=== PATIENT | male | born 1970 | race Hispanic/Latino ===

== ENCOUNTER 2020-03-30 15:04 | Inpatient (IN) | payer SELFPAY ==
[~2020-03-30] VITALS: Ht 167.6 cm; Wt 75.7 kg
[2020-03-30] MEDS ORDERED: SODIUM CHLORIDE 0.9% 1000ML 1,000 ML IV SCH ×2 (15:15→16:00)
[2020-03-30] MEDS ORDERED: PIPER-TAZ 3.375 GM 50 ML IV ONE (15:30)
[2020-03-30] MEDS ORDERED: VANCOMYCIN 1GM/NS 250 ML 250 ML IV ONE (15:30)
--- NOTE | 2020-03-30 15:33 | Emergency Department Note ---
History of Present Illnes History of Present Illness Chief Complaint: Extremity Trauma/Pain History of Present Illness This is a 49 year old male . Arrival Mode: Car Relocation Director Required: No Onset (how long ago): day(s) (6 days patient stepped on wood splinter 2 weeks ago which perforated his rubber shoe sole he was fine then Wednesday they noticed he had redness, no pain no fever) Radiation: Reports non-radiation Severity: mild (MILD PAIN), moderate Onset quality: gradual Duration (how long): day(s) (6 DAYS AGO IS STARTED GETTING RED, SWELLING NO DRAINAGE BUT CHANGED IN COLOR) Timing of current episode: constant Progression: worsening Context: Denies recent illness, Denies recent surgery, Denies recent immobilization, Denies recent travel, Denies trauma/injury, Denies new medications, Denies hx of DVT/PE, Denies non-compliance w/ medications, Denies other Relieving factors: immobilization Exacerbating factors: movement Associated symptoms: Reports other (no pain) Treatments prior to arrival: none Risk factors: DIABETIC POORLY CONTROLLED, NO FEVER Past Medical/Family History Physician Review I have reviewed the patient's past medical and family history. Any updates have been documented here. Past Medical History Recent Fever: No Clinical Suspicion of Infectio: Yes New/Unexplained Change in Ment: No Past Medical History: Diabetes, Hyperlipedemia Past Surgical History: None Social History Smoking Cessation: Smoker current status unk Alcohol Use: Occasional Any Illegal Drug Use: No Other Any Pre-Existing Lines (PICC,: No Is patient up to date on immun: No Review of Systems Review of Systems Constitutional: Denies no symptoms, Denies as per HPI, Denies chills, Denies diaphoresis, Denies fever, Denies malaise, Denies weakness, Denies other EENTM: Denies no symptoms, Denies as per HPI, Denies eye pain, Denies blurred vision, Denies tearing, Denies double vision, Denies ear pain, Denies ear disch arge, Denies nose pain, Denies nose congestion, Denies throat pain, Denies throat swelling, Denies mouth pain, Denies mouth swelling, Denies other Cardiovascular: Denies no symptoms, Denies as per HPI, Denies chest pain, Denies edema, Denies palpitations, Denies syncope, Denies other Respiratory: Denies no symptoms, Denies as per HPI, Denies change in phlegm color, Denies chest congestion, Denies cough, Denies hemoptysis, Denies excessive phlegm production, Denies pain on inspiration, Denies pain with cough, Denies dyspnea, Denies dyspnea on exertion, Denies snoring, Denies stridor, Denies wheezing, Denies other Integumentary: Reports lesions Neurological: Reports no symptoms Hematological/Lymphatic: Reports no symptoms Review of other systems: All other systems negative Physical Exam Related Data Allergies: Coded Allergies: No Known Allergies (Unverified , 03/30/20) Vital signs reviewed: Yes Physical Exam CONSTITUTIONAL Constitutional: Present well-developed, Present well-nourished; Absent distressed, Absent ill appearing HENT HENT: Present normocephalic EYES Eyes: Reports conjunctivae normal NECK Neck: Present supple PULMONARY Pulmonary: Present effort normal, Present breath sounds normal CARDIOVASCULAR Cardiovascular: Present regular rhythm, Present other (pt has palpable/dopplerable pulses) GASTROINTESTINAL Abdominal: Present soft GENITOURINARY Genitourinary: Present exam deferred SKIN Skin: Present other (left foot with skin breakdown in the plantar aspect erythema and desquamation between 3rd and 4th toes) MUSCULOSKELETAL NEUROLOGICAL Neurological: Present alert, Present oriented x 3 PSYCHOLOGICAL Psychological: Present mood/affect normal Results Laboratory Laboratory CMP Gluc 457 Cl 90 Alb 2.9 CBC 14.3 UA trace ket Gluc 500 Lab results reviewed: Yes Imaging Imaging results reviewed: Yes Assessment & Plan Medical Decision Making MDM osteo, gas gangrene, deep space infection, sepsis, dka, retained fb Reassessment Reassessment PT HAS GLUCOSE OF 470 PLUS NORMAL CO2 TRACE KETONES THIS COULD BE EARLY DKA HIS CL WAS [address] DURHAM AND SPOKE WITH HIM AGREES WITH ADMISSION WILL WRITE SOME BRIEF HOLDING ORDERS WILL PLACE PATIENT ON ANTI PSEUDOMONAL PCN AND VANC TO COVER ORGANISMS 'WILL NOT TREAT BP THIS IS CHRONIC AND HE IS ASYMPTOMATIC HE CAN BE STARTED ON A BP REGIMEN WHEN ADMITTED FOR BETTER CONTROL Assessment & Plan Final Impression: (1) Cellulitis of left foot (2) Abscess (3) Hypertension (4) Hyperglycemia Depart Disposition: ADMITTED Medications in the ED Sodium Chloride 1,000 ml @ 0 mls/hr Q0M IV ; Start 03/30/20 at 15:15; Stop 04/29/20 at 15:14 Vancomycin HCl 250 ml @ 167 mls/hr ONCE ONCE IV ; Start 03/30/20 at 15:30; Stop 03/30/20 at 16:59; Status UNV Piperacillin Sod/ Tazobactam Sod 50 ml @ 100 mls/hr ONCE ONCE IV ; Start 03/30/20 at 15:30; Stop 03/30/20 at 15:59 CARLOS REYES MD Mar 30, 2020 15:33
--- NOTE | 2020-03-30 15:50 | Diagnostic Imaging Report ---
EXAM: Abdomen Radiograph 1 View(s) INDICATION: ^infection ^[id number] ^[id number] COMPARISON: None FINDINGS: No acute fracture or dislocation. No osseous erosion. The joint spaces are preserved. No intracalcaneal spur. Advanced arterial calcifications. IMPRESSION: No acute osseous abnormality. Signed by: Cooper Meyer MD on 03/30/2020 3:47 PM
[2020-03-30] MEDS ORDERED: SODIUM CHLORIDE 0.9% 1000ML 1,000 ML ONE ×2 (15:52→16:01)
[2020-03-30] MEDS ORDERED: VANCOMYCIN 1GM/NS 250 ML 250 ML ONE (15:52)
[2020-03-30] MEDS ORDERED: PIPER-TAZ 3.375 GM 50 ML ONE (15:53)
[2020-03-30] MEDS ORDERED: TETANUS/DIPHTHERIA TOX ADULT 0.5 ML SYR IM ONE (16:00)
[2020-03-30] MEDS ORDERED: INSULIN REGULAR, HUMAN 100 UNIT/1 ML 3ML VIAL IV ONE (16:00)
[2020-03-30] MEDS ORDERED: INSULIN REGULAR, HUMAN 100 UNIT/1 ML 3ML VIAL ONE (16:01)
[2020-03-30] MEDS ORDERED: TETANUS/DIPHTHERIA TOX ADULT 0.5 ML SYR ONE (16:01)
[2020-03-30] MEDS ORDERED: DEXTROSE 50% SYRINGE 50 ML IV PRN (16:15)
[2020-03-30] MEDS ORDERED: ONDANSETRON HCL INJ 2MG/ML 2ML 2 MG/ML VIAL IV PRN (16:15)
--- NOTE | 2020-03-30 16:15 | NUR ---
[facility] NOTIFIED OF TRANSFER, 45 MINUTE ETA
[2020-03-30] MEDS ORDERED: MORPHINE SULFATE INJ 4 MG/ML INJ 1ML IV PRN ×2 (16:30→22:15)
[2020-03-30] MEDS: INSULIN REGULAR, HUMAN 100 UNIT/1 ML 3ML VIAL SQ SCH ×2 (16:30→21:40)
[2020-03-30 17:54] VITALS: BP 188/104
[2020-03-30] MEDS: SODIUM CHLORIDE 0.9% 1000ML 1,000 ML IV SCH (18:31)
--- NOTE | 2020-03-30 19:00 | NUR ---
Received the patient in report.lyeing in the bed.iv fluid running.stable condition.
[2020-03-30 19:51] VITALS: BP 170/94
[2020-03-30 20:00] VITALS: BP 146/92
[2020-03-30] MEDS ORDERED: METFORMIN HCL500 MG PO (20:25)
--- NOTE | 2020-03-30 20:25 | NUR ---
Admission assessment done.aaox3.ambulates.no resp.distress noted.open wound noted on left foot.swollen and redness noted elevated left foot.oriented to the unit.bed locked and in lowest position.phone and call light within reach.instructed to call for assistance as needed.
[2020-03-30 21:00] VITALS: BP 146/92
[2020-03-30] MEDS ORDERED: NIFEDIPINE CR 30 MG TAB PO SCH (21:30)
[2020-03-30] MEDS ORDERED: HYDRALAZINE HCL 20 MG/ML VIAL IV PRN (21:30)
[2020-03-30] MEDS ORDERED: DOCUSATE SODIUM 100 MG CAP PO PRN (21:30)
[2020-03-30] MEDS ORDERED: AMLODIPINE BESYLATE 10 MG TAB PO SCH (22:00)
[2020-03-30] MEDS ORDERED: HYDROCODONE/APAP 5MG-325MG TAB PO PRN (22:15)
--- NOTE | 2020-03-30 22:30 | NUR ---
HAS SEEN THE PATIENT.RECEIVED NEW ORDERS.
[2020-03-30] MEDS: CEFEPIME 1GM/NS 0.9% 50 ML 50 ML IV SCH (22:38)
[2020-03-30] MEDS: ACETAMINOPHEN 325 MG TAB PO PRN (22:45)
[2020-03-30] MEDS: LISINOPRIL 20 MG TAB PO SCH (22:47)
[2020-03-30] MEDS: INSULIN GLARGINE 100 UNITS/ML VIAL SQ SCH (22:48)
[2020-03-30] MEDS: ENOXAPARIN SOD INJ 40 MG/0.4 ML SYR SC SCH (22:50)
--- NOTE | 2020-03-30 23:05 | History and Physical ---
CHIEF COMPLAINT: Left foot swelling cellulitis. HISTORY OF PRESENT ILLNESS: A 49-year-old male, history of peripheral neuropathy type 2 diabetes, uncontrolled, hypertension uncontrolled, noncompliant with his medications. He was working out in the field about 2 weeks ago, walked on a thorn. He reports that the foot progressively got worse over the last several days. Reports having subjective fevers. Reports that his left foot had some discoloration that began Wednesday of this last week. He was able to ambulate on it as well, but progressively got worse and came into the [facility] for further evaluation and management. He denies any discharge to the left foot. Reports some mild pain. There is evidence of some cellulitis and swelling in that left foot. The patient is seen and evaluated at bedside on the medical floor. He is currently doing well. He is stable. He was alert, awake, and oriented and I discussed plan of care with nursing staff. REVIEW OF SYSTEMS: Pertinent positive left foot swelling, cellulitis, erythematic. The rest of 14-point review of systems are reviewed with the patient and are negative. ALLERGIES: NO KNOWN DRUG ALLERGIES. HOME MEDICATIONS: Metformin. PAST MEDICAL HISTORY: Type 2 diabetes, hypertension, type 2 diabetes, uncontrolled peripheral neuropathy. PAST SURGICAL HISTORY: Reports none. FAMILY HISTORY: Hypertension and diabetes. SOCIAL HISTORY: No drugs. No alcohol. Does not smoke. He works in construction. PHYSICAL EXAMINATION: VITAL SIGNS: Temperature is 100.2, pulse 107, respiratory rate is 18, blood pressure was 146/92, pulse ox is 98% on room air. GENERAL: No acute distress. Alert and oriented x3. Cooperative on examination. HEENT: Head is normocephalic and atraumatic. Eyes; pupils are reactive to light bilaterally. Extraocular movements intact bilaterally. Throat; no evidence of erythema or exudates in the posterior pharynx. Has poor dentition. NECK: Supple. Good range of motion throughout. PULMONARY: Clear to auscultation bilaterally. No wheezing, rales, or rhonchi. No crackles appreciated. CARDIOVASCULAR: Positive S1, S2. No murmurs, rubs, or gallops. ABDOMEN: Soft, nondistended, nontender to palpation. Bowel sounds present. MUSCULOSKELETAL: Strength is 5/5 throughout. No evidence of any muscle deficits on examination. No weakness appreciated. NEUROLOGIC: Cranial nerves II through XII grossly intact. No evidence of any neurological deficits on exam. SKIN: Intact. Warm to touch. Good cap refill. PSYCHIATRIC: Normal affect and mood. EXTREMITIES: Left foot is very swollen, erythematic, mild tender to palpation. He does have a little puncture wound in the plantar aspect of the left foot. Also has the 4th digit of his toe kind of necrotic in nature, bluish in discoloration with some swelling and skin peeling and very erythematic. LABORATORY DATA: Labs show white count was 14, hemoglobin 13, hematocrit is 41, platelets of 449. UA showed pH was 6, protein was greater than 300, nitrite and leukocyte esterase were negative. Chemistry; sodium 134, potassium 3.9, chloride 90, bicarbonate 26, glucose is 457, BUN 18, creatinine is 0.9. Liver panel, albumin 2.9, ALT 67, amylase 42, AST 32, total bilirubin was 0.6, GGT is 309, total protein 8.2, albumin 2.9. MICROBIOLOGY: Blood cultures are pending. Wound cultures are pending. IMAGING STUDIES: Left foot x-ray shows no evidence of any gas. No abscess appreciated. No osteomyelitis appreciated. No acute osseous abnormalities. IMPRESSION: 1. Left foot cellulitis concerning for underlying abscess. 2. Type 2 diabetes, uncontrolled. 3. Hypertension, uncontrolled. 4. Peripheral neuropathy. 5. Medical noncompliance. PLAN: At this time, I will go ahead and get an MRI of the left foot to evaluate for any abscess, osteomyelitis, or any other source of other findings. Foot x-ray was negative. Put on IV cefepime and IV vancomycin. Podiatry and ID have been consulted. As far his diabetes, I will put him on insulin sliding scale for now. I would like to see what his A1c is before I initiate a long-acting insulin. Get a hemoglobin A1c, lipid panel and a TSH level. As far his blood pressure, I did add lisinopril. His creatinine is stable. Electrolytes are stable. I added lisinopril 40 mg daily as well as Norvasc 10 mg daily first dose is now as his blood pressure is elevated. He will be on Lovenox for DVT prophylaxis. I will have him on some pain control and he will be on a diabetic diet. Otherwise, we will continue with same plan of care and monitor very closely. MD JOSE Carrillo/ROGER /[id number]
[2020-03-31] VITALS (8 sets, daily range): BP systolic 94–185; BP diastolic 61–98
[2020-03-31] MEDS: SODIUM CHLORIDE 0.9% 1000ML 1,000 ML IV SCH ×2 (05:41→20:37)
[2020-03-31] MEDS: CEFEPIME 1GM/NS 0.9% 50 ML 50 ML IV SCH ×3 (05:41→22:04)
[2020-03-31 06:08] LABS: BASOPHILS # (AUTO) 0.1 (0.0-0.1); BASOPHILS % 0.4 % (0.0-1.0); EOSINOPHILS # (AUTO) 0.1 (0.0-0.4); EOSINOPHILS % 0.8 % (0.0-6.0); HEMATOCRIT 37.9 % (38.2-49.6); HEMOGLOBIN 12.1 g/dL (14.0-18.0); LYMPHOCYTES # (AUTO) 2.5 (1.0-3.2); LYMPHOCYTES % 17.5 % (18.0-39.1); MEAN CORPUSCULAR HEMOGLOBIN 26.7 pg (28-32); MEAN CORPUSCULAR HGB CONC 31.9 g/dL (31-35); MEAN CORPUSCULAR VOLUME 83.7 fL (81-99); MONOCYTES # (AUTO) 1.5 (0.2-0.8); MONOCYTES % 10.1 % (4.4-11.3); NEUTROPHILS # (AUTO) 10.1 (2.1-6.9); NEUTROPHILS % 70.4 % (38.7-80.0); PLATELET COUNT 495 x10e3/uL (140-360); RED BLOOD COUNT 4.53 x10e6/uL (4.3-5.7); RED CELL DISTRIBUTION WIDTH 12.5 % (11.7-14.4)
--- NOTE | 2020-03-31 06:24 | NUR ---
Spoke to Calvin regarding consults with and spoke to Deniz regarding consults with .
[2020-03-31 06:32] LABS: ANION GAP 12.6 mmol/L (8-16); BLOOD UREA NITROGEN 20 mg/dL (7-26); BUN/CREATININE RATIO 16 (6-25); CARBON DIOXIDE 26 mmol/L (22-29); CHLORIDE 101 mmol/L (98-107); CREATININE, SERUM 1.24 mg/dL (0.72-1.25); EST GLOMERULAR FILTRATION RATE > 60 ML/MIN (60-); GLUCOSE 205 mg/dL (74-118); POTASSIUM 3.6 mmol/L (3.5-5.1); SODIUM 136 mmol/L (136-145)
--- NOTE | 2020-03-31 06:55 | NUR ---
Bed side shift report given to oncoming Rn.stable condition.
[2020-03-31] MEDS: INSULIN REGULAR, HUMAN 100 UNIT/1 ML 3ML VIAL SQ SCH ×4 (07:46→20:40)
[2020-03-31] MEDS: LISINOPRIL 20 MG TAB PO SCH (08:29)
[2020-03-31] MEDS: VANCOMYCIN 1GM/NS 250 ML 250 ML IV SCH ×2 (08:29→20:37)
[2020-03-31] MEDS ORDERED: IOPAMIDOL 370 MG/ML 200 ML INFUS..BTL INJ ONE (15:21)
[2020-03-31] MEDS ORDERED: SODIUM CHLORIDE 0.9% 50ML 50 ML ONE (15:21)
--- NOTE | 2020-03-31 15:31 | Diagnostic Imaging Report ---
EXAMINATION: CHEST 2 VIEWS INDICATION: ^PRIOR TO SURGERY ^[id number] ^[id number] COMPARISON: None FINDINGS: PA and lateral views TUBES and LINES: None. LUNGS: Lungs are well inflated. There is no evidence of pneumonia or pulmonary edema. PLEURA: No pleural effusion or pneumothorax. HEART AND MEDIASTINUM: The cardiomediastinal silhouette is unremarkable. BONES AND SOFT TISSUES: No focal osseous lesions. Soft tissues are unremarkable. UPPER ABDOMEN: Unremarkable. IMPRESSION: No acute thoracic abnormality. Signed by: Dr. Hamilton Brumfield MD on 03/31/2020 3:28 PM
--- NOTE | 2020-03-31 16:01 | Diagnostic Imaging Report ---
CT Lower extremity left with contrast, with reconstructions. CPT code: 91381, 85567 Indications: Foot infection. Technique: Contiguous 2.5 mm thickness axial images were obtained through the distal left lower extremity and foot. Rationale for reconstructions: Coronal and sagittal reconstructions were generated to better facilitate assessment of alignment and extent of fracture lines. Dose reduction techniques used: Automated exposure control, adjustment of the mAs and/or kVp according to patient size, standardized low-dose protocol, and/or iterative reconstruction technique. RADIATION DOSE: Total DLP: 134.24 mGy*cm Estimated effective dose: (DLP x 0.015 x size factor) mSv CTDIvol has been reviewed. It is below the limits set by the Radiation Protocol Committee (RPC). Comparison: Foot x-rays 03/30/2020. Findings: Soft tissues: Air in the soft tissues surrounding the fourth toe, proximal aspect. No radiopaque foreign bodies. Mild diffuse subcutaneous edema. No loculated fluid collections. Diffuse vascular calcifications are present. Bones: There may be a non-displaced fracture of the head of the proximal phalanx of the fourth digit, but this is visualized only on the sagittal series. No fracture was visualized on the x-rays. Small plantar calcaneal spurs. No periosteal new bone formation or sclerosis. Joints: Mild narrowing of the tibiotalar joint with small osteophytes. IMPRESSION: Subcutaneous emphysema surrounding the fourth digit, particularly at the head of the proximal phalanx. There is no CT evidence of osteomyelitis. However, MRI and bone scan are more sensitive modalities to identify osteomyelitis. MRI is also a more sensitive modality to identify any underlying fracture, if present. Thank you for this referral. Signed by: Dr. Hamilton Brumfield MD on 03/31/2020 3:57 PM
--- NOTE | 2020-03-31 16:33 | Consultation ---
DATE OF CONSULTATION: 03/31/2020 REASON FOR CONSULTATION: Gangrenous changes to the left foot with the patient being a [id number]-[id number] diabetic. HISTORY OF PRESENT ILLNESS: This is a pleasant 49-year-old male, who was seen at bedside, currently denying history of fever, chills, nausea, vomiting. He relates he stepped on a thorn two weeks ago. His foot started turning somewhat black and discolored since last Wednesday, presented to the emergency room yesterday. He is feeling better since he has been getting IV antibiotics. PAST MEDICAL HISTORY: Remarkable for [id number] diabetes, uncontrolled and noncompliant with hypertension and hypercholesterolemia. PAST SURGICAL HISTORY: The patient denies. ALLERGIES: THE PATIENT DENIES. SOCIAL HISTORY: Smokes a pack every month for 20+ years. Denies any recreational drug use. Socially, he drinks. Lives with his , has three kids. FAMILY HISTORY: Remarkable for diabetes. CURRENT MEDICATIONS: Note listed in chart including IV vancomycin and cefepime. REVIEW OF SYSTEMS: CARDIAC: He is denying any palpitations or arrhythmias. RESPIRATORY: Denies any shortness of breath or productive cough. GASTROINTESTINAL: Denies any diarrhea or constipation. GENITOURINARY: Denies any hematuria or problems voiding. LABORATORY DATA: Labs show white blood cell count of 14.4, hemoglobin 12.1 with a platelet count of 495. Blood glucose dropping from 325 to 199. PHYSICAL EXAMINATION: VITAL SIGNS: Afebrile, pulse rate 95, respiration 19, blood pressure 152/91, O2 saturation 97%. Podiatric physical examination reveals the following: VASCULATURE: Pedal pulses of both the DP and PT are diminished to both lower extremities. NEUROLOGICAL: Reveals loss of protective sensation when utilizing Maple-Antonio 5.07 monofilament wire. MUSCULOSKELETAL: Muscle mass to be asymmetrical, some swelling tenderness noted to the left lower extremity when compared to the right. Muscle strength to be 4 to 5/5 to all muscle groups. DERMATOLOGICAL: Shows gangrenous changes to the 4th toe, left foot. Foul smell present with cellulitis up to the mid foot area. X-rays were negative for any gas in the tissue. Does have calcification of vessels. ASSESSMENT: Diabetic neuropathy and gangrene with cellulitis. PLAN: The patient will be kept n.p.o. after midnight tonight for an amputation of 4th toe. I and D of left foot with possible transmetatarsal amputation. The patient understands no warrantees or guarantees can be given. We will continue IV antibiotics. We will start diluted wet-to-dry Betadine daily to the foot. We will repeat CBC with diff tomorrow after the surgery. Chest x-ray and EKG will be ordered. KELLEY Joyce/ROGER /[id number]
[2020-03-31] MEDS: ENOXAPARIN SOD INJ 40 MG/0.4 ML SYR SC SCH (16:45)
--- NOTE | 2020-03-31 17:18 | Progress Note ---
DATE: 03/31/2020 Medicine Progress Note SUBJECTIVE: The patient's left foot seems to be much better compared to last night when I evaluated it, but still very erythematic. He is scheduled for surgery tomorrow, needing some debridement and likely amputation of the toes. Still pending imaging. PHYSICAL EXAMINATION: VITAL SIGNS: Temperature is 97.6, pulse 75, respiratory rate is 19, blood pressure 152/91, and pulse ox 97% on room air. GENERAL: Not in acute distress. Alert and oriented x3. Cooperative on examination. HEENT: Head; normocephalic, atraumatic. Eyes; pupils are equal, round, and reactive to light bilaterally. Extraocular movements intact bilaterally. Throat; no evidence of erythema or exudates in the posterior pharynx. Has poor dentition. NECK: Supple. Good range of motion. PULMONARY: Clear to auscultation bilaterally. No wheezing, no rales, no rhonchi, no crackles appreciated. CARDIOVASCULAR: Positive S1 and S2. No murmurs, rubs, or gallops appreciated. ABDOMEN: Soft, nondistended, and nontender to palpation. Bowel sounds present. MUSCULOSKELETAL: Strength is 5/5 throughout. No evidence of any muscle deficits on examination. No weakness appreciated. NEUROLOGIC: Cranial nerves 2 through 12 grossly intact. No evidence of any neurological deficits on exam. SKIN: Intact. Warm to touch. Good cap refill. PSYCHIATRIC: Normal affect and mood. EXTREMITIES: No edema. His left foot erythematic with a necrotic 4th toe swelling. Tender to palpation on examination. LABORATORY DATA: Show white count 14, hemoglobin 12, hematocrit is 37.9, and platelets of 495. Chemistry; sodium 136, potassium 3.6, chloride 101, bicarb 26, anion gap of 12, BUN is 20, and creatinine is 1.24. Hemoglobin A1c 12.4. Calcium is 9. Triglycerides 189. LDL is pending. HDL is pending. Serology; coronavirus PCR pending. MICROBIOLOGY: Wound cultures so far showed no growth to date. Blood cultures are pending. IMAGING STUDIES: CT of the left foot with IV contrast pending. IMPRESSION: 1. Left foot cellulitis, concerning for underlying abscess. 2. Type 2 diabetes, uncontrolled. 3. Hypertension, uncontrolled. 4. Peripheral neuropathy. 5. Medical noncompliance. PLAN: At this time, MRI cannot occur today due to the weekend. We will go ahead and get a CT of the left foot with IV contrast. Continue with IV antibiotics being managed by ID. Podiatry came and evaluated the patient. The patient will likely need an amputation of the 4th toe and will likely needs some debridement. Await for the imaging studies. Continue with Lovenox for DVT prophylaxis. Get morning labs. MD JOSE Carrillo/ROGER /[id number]
--- NOTE | 2020-03-31 19:00 | NUR ---
Received the patient in report.lyeing in the bed.stable condition.no pain voiced.
[2020-03-31] MEDS: ACETAMINOPHEN 325 MG TAB PO PRN (20:35)
[2020-03-31] MEDS: INSULIN GLARGINE 100 UNITS/ML VIAL SQ SCH (20:40)
--- NOTE | 2020-03-31 21:43 | Consultation ---
DATE OF CONSULTATION: REASON FOR CONSULTATION: Infection of the foot. HISTORY OF PRESENT ILLNESS: This patient is a very pleasant [place] gentleman, comes in with infection of the foot, gangrenous 3rd toe. He does have diabetes mellitus. He has been having problem with his foot for the last couple of weeks. Now, the toe is gangrenous. PAST MEDICAL HISTORY: Diabetes mellitus. PAST SURGICAL HISTORY: Denies. ALLERGIES: NKA. SOCIAL HISTORY: There is no smoking, drug abuse, or alcohol abuse. FAMILY HISTORY: Unremarkable. LABORATORY DATA: Reviewed. Chart reviewed. PHYSICAL EXAMINATION: GENERAL: He is currently alert, oriented, does not seem in acute distress. On the foot, there is redness, erythema. There is gangrenous change of the foot. IMPRESSION: Osteomyelitis, foot gangrenous changes, concerned about peripheral vascular disease. Agree with supportive care. Agree with IV antibiotics. amputation of the toe as ordered. We will follow. MD ARIEL Moise/MODAntonio /[id number]
[2020-04-01] VITALS (8 sets, daily range): BP systolic 127–179; BP diastolic 68–109
--- NOTE | 2020-04-01 01:37 | NUR ---
Maintaining npo for procedure.iv fluid running.no pain voiced.phone and call light within reach.instructed to call for assistance as needed.
[2020-04-01] MEDS: SODIUM CHLORIDE 0.9% 1000ML 1,000 ML IV SCH ×2 (04:47→16:13)
[2020-04-01] MEDS: CEFEPIME 1GM/NS 0.9% 50 ML 50 ML IV SCH ×3 (05:24→21:30)
[2020-04-01 05:57] LABS: BASOPHILS # (AUTO) 0.1 (0.0-0.1); BASOPHILS % 0.4 % (0.0-1.0); EOSINOPHILS # (AUTO) 0.2 (0.0-0.4); EOSINOPHILS % 1.4 % (0.0-6.0); HEMATOCRIT 36.7 % (38.2-49.6); HEMOGLOBIN 11.9 g/dL (14.0-18.0); LYMPHOCYTES # (AUTO) 2.3 (1.0-3.2); LYMPHOCYTES % 16.6 % (18.0-39.1); MEAN CORPUSCULAR HEMOGLOBIN 26.9 pg (28-32); MEAN CORPUSCULAR HGB CONC 32.4 g/dL (31-35); MONOCYTES # (AUTO) 1.3 (0.2-0.8); MONOCYTES % 9.1 % (4.4-11.3); NEUTROPHILS % 71.5 % (38.7-80.0); PLATELET COUNT 533 x10e3/uL (140-360); RED BLOOD COUNT 4.42 x10e6/uL (4.3-5.7); RED CELL DISTRIBUTION WIDTH 12.4 % (11.7-14.4)
[2020-04-01 06:30] LABS: ANION GAP 11.5 mmol/L (8-16); BLOOD UREA NITROGEN 13 mg/dL (7-26); BUN/CREATININE RATIO 15 (6-25); CALCIUM 8.9 mg/dL (8.4-10.2); CARBON DIOXIDE 30 mmol/L (22-29); CHLORIDE 100 mmol/L (98-107); CREATININE, SERUM 0.84 mg/dL (0.72-1.25); EST GLOMERULAR FILTRATION RATE > 60 ML/MIN (60-); GLUCOSE 228 mg/dL (74-118); POTASSIUM 3.5 mmol/L (3.5-5.1); SODIUM 138 mmol/L (136-145)
--- NOTE | 2020-04-01 06:32 | NUR ---
PATIENT IS OFF THE UNIT FOR SURGERY.
[2020-04-01] MEDS ORDERED: BACITRACIN 50,000 UNIT VIAL ONE (06:36)
[2020-04-01] MEDS ORDERED: BETAMETHASONE DISODIUM PHOS 6 MG/ML VIAL ONE (06:36)
[2020-04-01] MEDS ORDERED: BUPIVACAINE HCL 0.5% INJ 30 ML VIAL INJ ONE (06:36)
[2020-04-01] MEDS ORDERED: LIDOCAINE HCL 1% LOCAL INJ 20 ML VIAL ONE (06:36)
--- NOTE | 2020-04-01 07:00 | NUR ---
SHIFT REPORT RECEIVED FROM THE [facility] REGISTERED NURSE RN. PT IS AT OR PER THE REPORT.
[2020-04-01] MEDS ORDERED: MUPIROCIN 2% OINT 22 GM TUBE ONE (07:17)
[2020-04-01] MEDS: INSULIN REGULAR, HUMAN 100 UNIT/1 ML 3ML VIAL SQ SCH ×4 (07:30→21:30)
--- NOTE | 2020-04-01 08:30 | NUR ---
PT IS BACK TO THE UNIT AFTER PROCEDURE. PT DENIES NEEDS AT THIS TIME.
--- NOTE | 2020-04-01 08:44 | Operative Report ---
DATE OF CONSULTATION: 04/01/2020 PREOPERATIVE DIAGNOSIS: Gangrene with abscess and cellulitis of left foot. POSTOPERATIVE DIAGNOSES: Confirmed. OPERATIVE PROCEDURES: 1. Amputation, 4th toe, left. 2. I and D of abscess, left foot. ANESTHESIA: General. HEMOSTASIS: None. PROCEDURE IN DETAIL: The patient was taken into the operating room, placed on the operating room table in supine position. Following induction of general anesthesia by the anesthesiologist, the left foot was then prepped and draped in the usual aseptic manner. The following procedure was then performed. Procedure #1, amputation, 4th toe, left foot. Attention was directed to the 4th toe where a curvilinear incision was performed overlying the 4th metatarsophalangeal joint. The toe was then disarticulated, sent for pathological analysis. Multiple plus pockets were found both plantarly and dorsally with necrotizing fasciitis-type tissue. Necrotizing fasciitis-type tissue and abscesses were I and D's, down to bone via sharp and blunt dissection. At this point, all necrotic tissue was removed until good viable bleeding tissue was achieved. All areas were then copiously flushed with sterile antibiotic solution. Secondary to the extent of the infection, it was left open for granulation tissue. Possible further surgical intervention may need to be done, which may include a transmetatarsal amputation depending on how patient responds. Sterile dressing was applied after 10 mL of 0.5% plain Marcaine plus 10 mL of 0.5% Marcaine and xylocaine were given to achieve local anesthesia of above-mentioned surgical area. Sterile dressing was applied and the patient was then transferred from the OR to recovery room with vital signs stable and neurovascular status intact. The patient remained in the hospital, getting IV antibiotics and local wound care to let foot demarcate before an another definitive procedure may need to be done. KELLEY Joyce/ROGER /[id number]
--- NOTE | 2020-04-01 09:14 | Diagnostic Imaging Report ---
X-ray left foot 2 views History: Left foot surgery Comparison: None Findings: See impression. Impression: Status post amputation of the left fourth toe at metatarsophalangeal joint. Soft tissue swelling and air. Incidentally noted vascular calcification. Signed by: Lukas Ma MD on 04/01/2020 9:10 AM
--- NOTE | 2020-04-01 09:14 | NUR ---
GAVE PACKET OF INFORMATION WITH [employer] [employer] FOR ASSISTANCE WITH LOW TO NO INCOME TO PATIENT. RESOURCES THAT PATIENT MAY BE ABLE TO FOLLOW UP UPON DISCHARGE. PT EDUCATED ON EACH RESOURCE AND UNDERSTANDING HOW TO FOLLOW UP TO SEE IF QUALIFIED FOR EACH RESOURCE.
[2020-04-01] MEDS: LISINOPRIL 20 MG TAB PO SCH (09:24)
[2020-04-01] MEDS: VANCOMYCIN 1GM/NS 250 ML 250 ML IV SCH ×2 (09:24→22:00)
--- NOTE | 2020-04-01 10:40 | Progress Note ---
DATE: SUBJECTIVE: The patient is seen and evaluated. Available labs and notes reviewed. Discussed with Dr. Palma. Discussed with the patient. The patient without any complaints. REVIEW OF SYSTEMS: No nausea, vomiting, fever, chills, chest pain, shortness of breath, headache, rash, dysuria, polyuria, or diarrhea. The patient states that he is tolerating antibiotics okay and appetite is good. He ate 100% of his breakfast this morning. PHYSICAL EXAMINATION: VITAL SIGNS: Temperature is 98.7 with a T-max of 100.6 last night around 8 o'clock and also this morning about 7:30, but the patient did not complain. Pulse is 87, respiration 18, and blood pressure 136/79. GENERAL: Alert and oriented, in no acute distress. CV: S1 and S2. CHEST: Equal expansion. Clear to auscultation. No acute distress. ABDOMEN: Soft and nontender. No distention. HEENT: Moist. No pallor. No JVD. EXTREMITIES: Left foot wound is open. It is packed with some bloody drainage on the dressing, but no pus noted, which all packed. Not much of a tenderness during my exam. MEDICATIONS: Medication list reviewed and from ID point of view, the patient is on vancomycin IV and cefepime. LABORATORY STUDIES: White count of 13.99, hemoglobin 11.9, and platelets 533. Sodium 138, potassium 3.5, and creatinine 0.84. Serology; coronavirus PCR not detected on 03/30/2020. MICROBIOLOGY: Blood cultures 03/30, is negative. Wound culture 03/30, shows gram-positive cocci and gram-negative bacilli. Gram-positive cocci turned out to be Staphylococcus aureus with identification and sensitivity pending. Wound culture from 04/01, is pending. IMAGING: X-ray of the left foot showed status post amputation of the left 4th toe at metatarsophalangeal joint. ASSESSMENT AND PLAN: 1. Left foot osteomyelitis. 2. Status post amputation of the toe, as mentioned above on radiology studies. 3. Peripheral vascular disease. 4. Diabetes. 5. Electrolyte abnormalities per others. 6. Anemia. 7. Debility. 8. Continue with vancomycin IV and cefepime. Discussed with the nurse. We will get vancomycin trough. Further management of this patient is based on daily findings on laboratory and physical examination. Please refer to chart for more information. Discussed with Dr. Palma in details. Dictated by Hugo Connolly) RAYMOND Esparza Slava Palma MD /JOHNL /[id number]
[2020-04-01] MEDS ORDERED: MIDAZOLAM HCL 2 MG/2 ML VIAL ONE (14:05)
[2020-04-01] MEDS ORDERED: FENTANYL CITRATE/PF 100MCG/2 ML INJ ONE (14:05)
[2020-04-01] MEDS ORDERED: ONDANSETRON HCL INJ 2MG/ML 2ML 2 MG/ML VIAL ONE (14:35)
[2020-04-01] MEDS ORDERED: SEVOFLURANE INHAL SOLN 250 ML PEN BTL ONE (14:35)
[2020-04-01] MEDS ORDERED: KETOROLAC TROMETHAMINE 30 MG/ML VIAL ONE (14:35)
[2020-04-01] MEDS ORDERED: ETOMIDATE 2 MG/ML 10 ML INJ IV ONE (14:35)
[2020-04-01] MEDS ORDERED: DEXAMETHASONE SOD PHOS INJ 4 MG/ML VIAL ONE (14:35)
[2020-04-01] MEDS ORDERED: ONDANSETRON HCL 4 MG ORAL DISINTEGRATING TAB PO PRN (15:00)
[2020-04-01] MEDS: ENOXAPARIN SOD INJ 40 MG/0.4 ML SYR SC SCH (16:13)
--- NOTE | 2020-04-01 17:54 | NUR ---
PAGED DR. DURHAM REGARDING MRI ORDER.
--- NOTE | 2020-04-01 19:05 | NUR ---
Patient visited in room during nursing rounds. Patient alert and oriented x3. Ambulatory in room prn. Pt uses support shoe on left foot during ambulation in room prn. S/P amputation of 4th left digit of left foot today. Whole left foot especially on area of 4th toe covered with surgical dressing and kerlix (C/D/I). Pt on scheduled IV antibiotics. Call milner within reach. Will monitor pt closely.
--- NOTE | 2020-04-01 19:10 | NUR ---
BEDSIDE SHIFT REPORT GIVEN TO THE COMMISSIONING MANAGER RN. PT DENIED FURTHER NEEDS.
--- NOTE | 2020-04-01 20:28 | Progress Note ---
DATE: 04/01/2020 Medicine Progress Note SUBJECTIVE: The patient is doing well today. He underwent amputation of his 4th toe in his left foot. He did well postprocedurally. PHYSICAL EXAMINATION: VITAL SIGNS: Temperature is 98.7, pulse 93, respiratory rate is 18, blood pressure 146/92, and pulse ox 99% on room air. GENERAL: Not in acute distress. Alert and oriented x3. Cooperative on examination. HEENT: Head; normocephalic, atraumatic. Eyes; pupils are equal, round, and reactive to light bilaterally. Extraocular movements intact bilaterally. Throat; no evidence of erythema or exudates in the posterior pharynx. Has poor dentition. NECK: Supple. Good range of motion. PULMONARY: Clear to auscultation bilaterally. No wheezing, no rales, no rhonchi, no crackles appreciated. CARDIOVASCULAR: Positive S1 and S2. No murmurs, rubs, or gallops appreciated. ABDOMEN: Soft, nondistended, and nontender to palpation. Bowel sounds present. MUSCULOSKELETAL: Strength is 5/5 throughout. No evidence of any muscle deficits on examination. No weakness appreciated. EXTREMITIES: Left foot swelling present, but much improved with erythema and left foot 4th digit toe amputated. LABORATORY DATA: Show white count 13.9, hemoglobin 11.9, hematocrit 36.7, platelets of 533. Chemistry; sodium 138, potassium 3.5, chloride 100, bicarb 30, anion gap of 11, BUN is 13, creatinine is 0.84. Point of care glucose is 324, calcium is 8.9. Blood cultures no growth today. Urine cultures show gram-negative bacillus and Staphylococcus aureus. IMAGING STUDIES: Foot x-ray today shows left 4th toe status post amputation. MRI of the foot ordered. IMPRESSION: 1. Left foot cellulitis, status post 4th digit left foot amputated. 2. Type 2 diabetes, uncontrolled. 3. Hypertension, uncontrolled. 4. Peripheral neuropathy. 5. Medical noncompliance. PLAN: At this time, I spoke with the consultants. They want an MRI. The patient underwent status post amputation of the toe. Continue with pain control. CT of the left foot noted. Continue with IV antibiotics. Podiatry and ID are following. Monitor wound cultures. MD JOSE Carrillo/JOHNL /[id number]
[2020-04-01] MEDS: INSULIN GLARGINE 100 UNITS/ML VIAL SQ SCH (21:30)
[2020-04-02] VITALS (7 sets, daily range): BP systolic 130–177; BP diastolic 77–96
[2020-04-02] MEDS: CEFEPIME 1GM/NS 0.9% 50 ML 50 ML IV SCH ×3 (05:56→22:40)
[2020-04-02] MEDS: SODIUM CHLORIDE 0.9% 1000ML 1,000 ML IV SCH ×2 (05:56→22:40)
[2020-04-02] MEDS: LISINOPRIL 20 MG TAB PO SCH ×2 (05:56→09:12)
[2020-04-02 06:07] LABS: BASOPHILS % 0.3 % (0.0-1.0); EOSINOPHILS # (AUTO) 0.2 (0.0-0.4); EOSINOPHILS % 1.4 % (0.0-6.0); HEMATOCRIT 34.2 % (38.2-49.6); HEMOGLOBIN 11.3 g/dL (14.0-18.0); LYMPHOCYTES # (AUTO) 3.5 (1.0-3.2); LYMPHOCYTES % 23.1 % (18.0-39.1); MEAN CORPUSCULAR HEMOGLOBIN 28.1 pg (28-32); MEAN CORPUSCULAR VOLUME 85.1 fL (81-99); MONOCYTES # (AUTO) 1.1 (0.2-0.8); MONOCYTES % 7.1 % (4.4-11.3); NEUTROPHILS # (AUTO) 10.1 (2.1-6.9); PLATELET COUNT 528 x10e3/uL (140-360); RED BLOOD COUNT 4.02 x10e6/uL (4.3-5.7); RED CELL DISTRIBUTION WIDTH 12.5 % (11.7-14.4)
[2020-04-02 06:44] LABS: ALANINE AMINOTRANSFERASE 21 IU/L (0-55); ALBUMIN/GLOBULIN RATIO 0.4 (0.8-2.0); ALKALINE PHOSPHATASE 335 IU/L (40-150); ANION GAP 11.3 mmol/L (8-16); BLOOD UREA NITROGEN 10 mg/dL (7-26); BUN/CREATININE RATIO 14 (6-25); CALCIUM 8.4 mg/dL (8.4-10.2); CARBON DIOXIDE 28 mmol/L (22-29); CHLORIDE 103 mmol/L (98-107); CREATININE, SERUM 0.73 mg/dL (0.72-1.25); EST GLOMERULAR FILTRATION RATE > 60 ML/MIN (60-); GLUCOSE 126 mg/dL (74-118); POTASSIUM 3.3 mmol/L (3.5-5.1); SODIUM 139 mmol/L (136-145)
--- NOTE | 2020-04-02 07:26 | NUR ---
PATIENT IN BED RESTING WITH NO S/S OF DISTRESS. IV FLUID INFUSING ORDERED. DRESSING INTACT TO LEFT FOOT WITH SMALL AMOUNT OF DRAINAGE. BED IN LOWER POSITION, CALL LIGHT AT REACH.
[2020-04-02] MEDS: INSULIN REGULAR, HUMAN 100 UNIT/1 ML 3ML VIAL SQ SCH ×4 (07:30→22:40)
[2020-04-02] MEDS: SITAGLIPTIN 100 MG TAB PO SCH (09:12)
[2020-04-02] MEDS: VANCOMYCIN 1GM/NS 250 ML 250 ML IV SCH ×2 (09:12→23:53)
--- NOTE | 2020-04-02 10:30 | NUR ---
PATIENT OFF UNIT TO RADIOLOGY.
--- NOTE | 2020-04-02 10:59 | Diagnostic Imaging Report ---
MRI of the left forefoot without contrast. History: Foot pain. Cellulitis. Swelling. Infection to the forefoot. Prior surgery. Decreased range of motion. Technique: Multiplanar multisequence MRI of the foot without contrast Comparison: Radiographs 04/01/2020 Findings: Status post amputation of the left fourth toe at metatarsophalangeal joint with associated postsurgical change/soft tissue defect. Soft tissue swelling and air in the region. Ill-defined fluid collection at the plantar aspect of the second and third toes likely due to a developing phlegmon/early abscess best seen on series 2 image 19 and 20 as well as coronal series 5 image 14 through 16. Abnormal bone marrow edema in the distal fourth metatarsal and in the distal third metatarsal and proximal third toe worrisome for osteomyelitis. No acute fracture, dislocation or avascular necrosis No ligamentous or tendon tear. The visualized neurovascular bundles are intact. Impression: Abnormal bone marrow edema in the distal fourth metatarsal and in the distal third metatarsal and proximal third toe worrisome for osteomyelitis. Ill-defined fluid collection at the plantar aspect of the second and third toes likely due to a developing phlegmon/early abscess. Signed by: Dr. Lemuel Perkins M.D. on 04/02/2020 10:55 AM
--- NOTE | 2020-04-02 11:00 | NUR ---
PATIENT BACK TO UNIT FROM RADIOLOGY. HAD A MRI OF THE LEFT FOOT. IN BED WITH CALL LIGHT AT REACH.
--- NOTE | 2020-04-02 11:11 | Progress Note ---
DATE: SUBJECTIVE: The patient is seen and evaluated. Available labs and notes reviewed. Discussed with the patient. Discussed with the family. Discussed with staff. No new events. REVIEW OF SYSTEMS: No nausea, vomiting, fever, chills, chest pain, shortness of breath, headache, rash, or dysuria. The pain is controlled. MEDICATIONS: Medication list reviewed. From ID point of view, the patient is on vancomycin IV and cefepime. LABORATORY STUDIES: White count of 15.03, hemoglobin 11.3, and platelets 528. Sodium 139, potassium 3.3, and creatinine 0.73. Toxicology; vancomycin trough was 8.6 on 04/01. Serology: Coronavirus PCR not detected on 03/30/2020. MICROBIOLOGY: Wound culture showed Proteus mirabilis and MSSA. Blood culture was negative, wound also showed Streptococcus. IMAGING: MRI of the left foot was just done and it is pending the results. PHYSICAL EXAMINATION: VITAL SIGNS: Temperature is 98.1, pulse is 86, respirations 17, and blood pressure 161/81. Fever resolved. GENERAL: Alert and oriented, no acute distress. CV: S1-S2. CHEST: Equal expansion. Clear to auscultation. No acute distress. ABDOMEN: Soft. No tenderness. No distention. HEENT: Moist. No pallor. No JVD. EXTREMITIES: Left foot wound on local care, dressed. ASSESSMENT AND PLAN: 1. Osteomyelitis of the left foot. 2. Status post amputation of toes. 3. Peripheral vascular disease. 4. Diabetes. 5. Anemia. 6. Debility. 7. Electrolyte abnormalities. 8. The patient is on vancomycin IV and cefepime. Discussed with Dr. Palma. Please refer to chart for more information. Dictated by Hugo Esparza PA-C (Al) Slava Palma MD /MODL /[id number]
[2020-04-02 13:11] LABS: CHOL/HDL RATIO 5.7 (3.9-4.7)
--- NOTE | 2020-04-02 15:41 | NUR ---
MD IN TO SEE PATIENT, NO NEW ORDER RECEIVED.
[2020-04-02] MEDS: ENOXAPARIN SOD INJ 40 MG/0.4 ML SYR SC SCH (17:02)
--- NOTE | 2020-04-02 19:05 | NUR ---
BED SIDE SHIFT REPORT GIVEN TO ON COMING NURSE.
--- NOTE | 2020-04-02 19:10 | NUR ---
Patient visited in room during nursing rounds. Patient alert and oriented x3. Ambulatory in room prn. Pt uses support shoe on left foot during ambulation in room prn. S/P amputation of 4th left digit of left foot. Whole left foot especially on area of 4th toe covered with surgical dressing and kerlix (C/D/I). Pt on IVF (NS at 75ml/hr) and on scheduled IV antibiotics. Call milner within reach. Will monitor pt closely.
[2020-04-02] MEDS: INSULIN GLARGINE 100 UNITS/ML VIAL SQ SCH (22:40)
[2020-04-03] VITALS (8 sets, daily range): BP systolic 134–166; BP diastolic 83–95
--- NOTE | 2020-04-03 00:29 | Progress Note ---
DATE: 04/02/2020 Medicine Progress Note SUBJECTIVE: The patient is doing well today with no complaints. MRI of the foot performed. PHYSICAL EXAMINATION: VITAL SIGNS: Temperature is 98.6, pulse 98, respiratory rate is 20, blood pressure 166/88, pulse ox 99% on room air. GENERAL: Not acute distress, alert and oriented x3, cooperative on examination. HEENT: Head is normocephalic and atraumatic. Eyes; pupils are equal, round, and reactive to light bilaterally. Extraocular movements intact bilaterally. Throat; no evidence of erythema or exudates in the posterior pharynx. Has poor dentition. NECK: Supple. Good range of motion. PULMONARY: Clear to auscultation bilaterally. No wheezing, no rales, no rhonchi, no crackles appreciated. CARDIOVASCULAR: Positive S1 and S2. No murmurs, rubs, or gallops appreciated. ABDOMEN: Soft, nondistended, and nontender to palpation. Bowel sounds present. MUSCULOSKELETAL: Strength is 5/5 throughout. No evidence of any muscle deficits on examination. No weakness appreciated. NEUROLOGICAL: Cranial nerves II through XII grossly intact. No evidence of any neurological deficits on exam. SKIN: Intact. Warm to touch. Good cap refill. PSYCHIATRIC: Normal affect and mood. EXTREMITIES: No edema. Good range of motion throughout. Left foot still shows some evidence of cellulitis, erythema, currently wrapped. LABORATORY DATA: Labs show white count 15, hemoglobin 11, hematocrit is 34, and platelets of 528. Chemistry; sodium 139, potassium 3.3, chloride 103, bicarb 28, anion gap of 11, BUN is 10, creatinine is 0.73, glucose 126, calcium 8.4, total bilirubin is 0.2, AST 18, ALT 21, alkaline phosphatase 335, total protein 6.5, albumin was 2. Coronavirus was not detected. Blood cultures, no growth to date. Wound culture shows Proteus mirabilis, Staphylococcus aureus, Streptococcus bovis, and then repeat wound culture shows Staphylococcus aureus. IMAGING STUDIES: MRI of the foot shows abnormal bone marrow edema in the distal 4th metatarsal, distal 3rd metatarsal, and proximal 3rd toe, worrisome for osteomyelitis. Ill-defied fluid collection at the plantar aspect of the 2nd and 3rd toes, likely developing phlegmon and possibly early abscess. IMPRESSION: 1. Left foot cellulitis, status post 4th digit left foot amputation. 2. Type 2 diabetes, uncontrolled. 3. Hypertension, uncontrolled. 4. Peripheral neuropathy. 5. Medical noncompliance. PLAN: At this time, MRI of the left foot noted, concerning for underlying abscess and further osteomyelitis. We will speak with Podiatry tomorrow. Continue with IV antibiotics. Wound cultures noted being managed by ID. Put on Lovenox for DVT prophylaxis. Diabetic diet. Monitor glucose levels very closely on the new regimen of insulin. MD JOSE Carrillo/MODL /[id number]
[2020-04-03 06:01] LABS: BASOPHILS % 0.3 % (0.0-1.0); EOSINOPHILS # (AUTO) 0.3 (0.0-0.4); EOSINOPHILS % 2.2 % (0.0-6.0); HEMATOCRIT 33.7 % (38.2-49.6); HEMOGLOBIN 11.2 g/dL (14.0-18.0); LYMPHOCYTES # (AUTO) 2.4 (1.0-3.2); LYMPHOCYTES % 20.6 % (18.0-39.1); MEAN CORPUSCULAR HEMOGLOBIN 28.8 pg (28-32); MEAN CORPUSCULAR HGB CONC 33.2 g/dL (31-35); MEAN CORPUSCULAR VOLUME 86.6 fL (81-99); MONOCYTES # (AUTO) 0.9 (0.2-0.8); MONOCYTES % 8.1 % (4.4-11.3); NEUTROPHILS # (AUTO) 7.8 (2.1-6.9); NEUTROPHILS % 68.1 % (38.7-80.0); PLATELET COUNT 474 x10e3/uL (140-360); RED BLOOD COUNT 3.89 x10e6/uL (4.3-5.7); RED CELL DISTRIBUTION WIDTH 13.2 % (11.7-14.4)
[2020-04-03] MEDS: CEFEPIME 1GM/NS 0.9% 50 ML 50 ML IV SCH ×3 (06:15→21:09)
[2020-04-03 06:30] LABS: ANION GAP 10.4 mmol/L (8-16); BLOOD UREA NITROGEN 12 mg/dL (7-26); BUN/CREATININE RATIO 16 (6-25); CALCIUM 8.4 mg/dL (8.4-10.2); CARBON DIOXIDE 29 mmol/L (22-29); CHLORIDE 102 mmol/L (98-107); CREATININE, SERUM 0.77 mg/dL (0.72-1.25); EST GLOMERULAR FILTRATION RATE > 60 ML/MIN (60-); GLUCOSE 134 mg/dL (74-118); POTASSIUM 3.4 mmol/L (3.5-5.1); SODIUM 138 mmol/L (136-145)
--- NOTE | 2020-04-03 07:00 | NUR ---
received bedside report. pt is alert resting in bed, no s/s of distress. call light within reach and instructed pt to call RN for help
[2020-04-03] MEDS: INSULIN REGULAR, HUMAN 100 UNIT/1 ML 3ML VIAL SQ SCH ×4 (08:30→21:15)
[2020-04-03] MEDS: LISINOPRIL 20 MG TAB PO SCH (08:54)
[2020-04-03] MEDS: SITAGLIPTIN 100 MG TAB PO SCH (08:54)
--- NOTE | 2020-04-03 09:20 | Progress Note ---
DATE: 04/03/2020 SUBJECTIVE: The patient is seen at bedside, doing much better. Denies any history of fever, chills, nausea, or vomiting. Decreased pain and tenderness to the left lower extremity. OBJECTIVE: VITALS: Afebrile with temperature of 98.7, pulse rate 86, respirations 15, blood pressure 162/84, O2 saturation 99%. LABORATORY DATA: Noted. White blood cell dropping from a peak of 15.03 to 11.47 today, hemoglobin 11.2 with a platelet count of 474. Ulceration and cellulitis to the dorsal aspect of the left lower extremity significantly better. Still some drainage, tendon exposed dorsally secondary to the extensive amount of debridement that had to be performed. Swelling to the 1st, 2nd, 3rd, and 5th digits are decreasing, some drainage, but negative foul smell. ASSESSMENT: Grade 4 ulcer status post amputation, extensive I and D, left foot with cellulitis. PLAN: We will need to have IV antibiotics for at least two more weeks. We will continue local wound care, let the foot demarcate. Further surgery may be needed. At this point, we will treat conservatively. The patient understands that no warrantees or guarantees can be given. We will repeat CBC with diff. Dressing change on this date. SilvaSorb applied followed by diluted wet-to-dry Betadine. Continue offloading. KELLEY Joyce/ROGER /[id number]
--- NOTE | 2020-04-03 10:36 | Progress Note ---
DATE: SUBJECTIVE: The patient is seen and evaluated. Available labs and notes reviewed. Discussed with Dr. Palma. Please refer to the chart for more information. REVIEW OF SYSTEMS: No nausea, vomiting, fever, chills, chest pain, shortness of breath, head ache, rash, dysuria. OBJECTIVE: VITAL SIGNS: Temperature 98.7, pulse is 86, respirations 15, blood pressure 162/84. MEDICATIONS: Medication list reviewed from ID point of view. The patient is on cefepime and vancomycin IV. LABORATORY STUDIES: White count of 11.47, improved from 15.03. Hemoglobin 11.2, platelets 474. Sodium 138, potassium 3.4, creatinine 0.77. Vancomycin trough 8.6 on 04/01/2020. Coronavirus PCR not detected on 03/30/2020. MICROBIOLOGY: No new microbiology studies available. Recheck wound culture showed Staphylococcus aureus with identification sensitivity pending with Proteus mirabilis, not sure if it is MSSA yet. Previous wound culture was positive for MSSA, Proteus mirabilis, and Streptococcus bovis. IMAGING: MRI of the left foot showed possible osteomyelitis of the distal 4th metatarsal, distal end of the 3rd metatarsal, and proximal 3rd toe. Also, showed ill-defined fluid collection at the plantar aspect of the 2nd and 3rd toes, likely due to developing phlegmon/early abscess. PHYSICAL EXAMINATION: GENERAL: Alert and oriented, not in acute distress. CVS: S1 and S2. CHEST: Equal expansion. Clear to auscultation. No acute distress. HEENT: Moist. No pallor. No JVD. EXTREMITIES: Left foot wound on local care. ASSESSMENT AND PLAN: 1. Left foot osteomyelitis as mentioned above. 2. Possible abscess as mentioned above on MRI. 3. Status post amputation of the toe. 4. Peripheral vascular disease. 5. Diabetes. 6. Debility. 7. Anemia. 8. Electrolyte abnormalities. Podiatry noted that no intervention at this point. Per Podiatry note, cultures as above, continue with antibiotics. Monitor the patient in clinic and follow with the labs. Please refer to chart for more information. Discussed with Dr. Palma in details. Dictated by Hugo Esparza PA-C (Al) Ant Carver MD /MODL /[id number]
[2020-04-03] MEDS: SODIUM CHLORIDE 0.9% 1000ML 1,000 ML IV SCH ×2 (11:49→23:27)
[2020-04-03] MEDS: VANCOMYCIN 1GM/NS 250 ML 250 ML IV SCH ×2 (12:21→23:35)
[2020-04-03] MEDS ORDERED: MORPHINE SULFATE 2 MG/ML SYR 1ML IV PRN (14:45)
[2020-04-03] MEDS: ACETAMINOPHEN 325 MG TAB PO PRN (17:01)
[2020-04-03] MEDS: ENOXAPARIN SOD INJ 40 MG/0.4 ML SYR SC SCH (17:09)
--- NOTE | 2020-04-03 18:51 | NUR ---
WALKING ROUNDS PERFORMED, RECEIVED PT LAYING SEMI FOWLERS IN BED, AAOX3, RR EVEN AND NON-LABORED, ON ROOM AIR. (L) FOOT ELEVATED ON PILLOW. DRESSING TO (L) FOOT CDI. LEFT PT LAYING SEMI FOWLERS IN BED, BED IN LOW LOCKED POSITION, SIDE RAILS UPX2, CALL LIGHT AND PHONE WITHIN REACH.
[2020-04-03] MEDS: INSULIN GLARGINE 100 UNITS/ML VIAL SQ SCH (21:15)
--- NOTE | 2020-04-03 23:44 | Progress Note ---
DATE: 04/03/2020 SUBJECTIVE: The patient is doing well today with no complaints. MRI of the left foot consistent with an abscess and fluid collection. Discussed with consultants Podiatry and ID. Podiatry would like to just monitor on IV antibiotics, but it seems that the patient does need an incision and drainage. We will defer to Podiatry. PHYSICAL EXAMINATION: VITAL SIGNS: Temperature is 98.5, pulse 87, respirations 12, blood pressure is 164/95, pulse ox 99% on room air. GENERAL: Not in acute distress. Alert and oriented x3. Cooperative on examination. HEENT: Head; normocephalic, atraumatic. Eyes; pupils are equal, round, and reactive to light bilaterally. Extraocular movements intact bilaterally. Throat; no evidence of erythema or exudates in the posterior pharynx. Has poor dentition. NECK: Supple. Good range of motion. PULMONARY: Clear to auscultation bilaterally. No wheezing, no rales, no rhonchi, no crackles appreciated. CARDIOVASCULAR: Positive S1 and S2. No murmurs, rubs, or gallops appreciated. ABDOMEN: Soft, nondistended, and nontender to palpation. Bowel sounds present. MUSCULOSKELETAL: Strength is 5/5 throughout. No evidence of any muscle deficits on examination. No weakness appreciated. NEUROLOGIC: Cranial nerve II through XII grossly intact. No evidence of any neurological deficits on exam. SKIN: Intact. Warm to touch. Good cap refill. PSYCHIATRIC: Normal affect and mood. EXTREMITIES: No edema. Good range of motion throughout. LABORATORY FINDINGS: Show white count 11, hemoglobin 11, hematocrit is 33, platelets of 474. Chemistry; sodium 138, potassium 3.4, chloride 102, bicarb 29, anion gap of 10, BUN is 12, creatinine is 0.77, glucose 134, calcium 8.4. Coronavirus not detected. Blood cultures, no growth. Wound culture shows protease Staphylococcus, Streptococcus bovis and then repeat of foot culture shows Staphylococcus aureus Proteus mirabilis. IMAGING STUDIES: MRI of the foot shows abnormal bone marrow edema in the distal 4th metatarsal, in the distal 3rd metatarsal, and proximal 3rd toe, worrisome for osteomyelitis. Ill-defined fluid collection at the plantar aspect of the 2nd and 3rd toes, likely due to developing phlegmon or early abscess. IMPRESSION: 1. Left foot osteomyelitis. 2. Possible abscess with fluid collection in the left foot. 3. 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 4. Peripheral vascular disease. 5. Type 2 diabetes. 6. Medically debilitated. 7. Anemia. 8. Electrolyte abnormalities. PLAN: At this time, I spoke with Podiatry including ID. It seems that the patient does need to have an incision and drainage. We will continue with IV antibiotics. Podiatry will like to monitor this very closely for now and possibly intervene if he does not get improved. Replace electrolytes accordingly. Add Coreg for blood pressure elevation. Lovenox for DVT prophylaxis. Discussed with consultants. MD JOSE Carrillo/ROGER /[id number]
[2020-04-04] VITALS (7 sets, daily range): BP systolic 146–170; BP diastolic 86–96
[2020-04-04] MEDS: CEFEPIME 1GM/NS 0.9% 50 ML 50 ML IV SCH ×3 (05:20→21:51)
[2020-04-04] MEDS: SODIUM CHLORIDE 0.9% 1000ML 1,000 ML IV SCH (05:30)
[2020-04-04 06:17] LABS: BASOPHILS # (AUTO) 0.1 (0.0-0.1); BASOPHILS % 0.5 % (0.0-1.0); EOSINOPHILS # (AUTO) 0.2 (0.0-0.4); EOSINOPHILS % 2.1 % (0.0-6.0); HEMATOCRIT 35.3 % (38.2-49.6); HEMOGLOBIN 11.6 g/dL (14.0-18.0); LYMPHOCYTES # (AUTO) 2.5 (1.0-3.2); LYMPHOCYTES % 23.6 % (18.0-39.1); MEAN CORPUSCULAR HEMOGLOBIN 27.9 pg (28-32); MEAN CORPUSCULAR HGB CONC 32.9 g/dL (31-35); MEAN CORPUSCULAR VOLUME 84.9 fL (81-99); MONOCYTES # (AUTO) 0.9 (0.2-0.8); MONOCYTES % 8.3 % (4.4-11.3); NEUTROPHILS # (AUTO) 6.8 (2.1-6.9); PLATELET COUNT 602 x10e3/uL (140-360); RED BLOOD COUNT 4.16 x10e6/uL (4.3-5.7); RED CELL DISTRIBUTION WIDTH 12.7 % (11.7-14.4)
[2020-04-04 06:59] LABS: ANION GAP 9.8 mmol/L (8-16); BLOOD UREA NITROGEN 9 mg/dL (7-26); BUN/CREATININE RATIO 13 (6-25); CALCIUM 9.3 mg/dL (8.4-10.2); CARBON DIOXIDE 30 mmol/L (22-29); CHLORIDE 100 mmol/L (98-107); CREATININE, SERUM 0.71 mg/dL (0.72-1.25); EST GLOMERULAR FILTRATION RATE > 60 ML/MIN (60-); GLUCOSE 161 mg/dL (74-118); POTASSIUM 3.8 mmol/L (3.5-5.1); SODIUM 136 mmol/L (136-145)
--- NOTE | 2020-04-04 07:00 | NUR ---
received bedside report. pt is sleeping, no s/s of distress. call light within reach
[2020-04-04] MEDS: SITAGLIPTIN 100 MG TAB PO SCH (08:12)
[2020-04-04] MEDS: CARVEDILOL 3.125 MG TAB PO SCH ×2 (08:12→17:00)
[2020-04-04] MEDS: INSULIN REGULAR, HUMAN 100 UNIT/1 ML 3ML VIAL SQ SCH ×4 (08:12→21:47)
[2020-04-04] MEDS: LISINOPRIL 20 MG TAB PO SCH (08:12)
--- NOTE | 2020-04-04 08:32 | NUR ---
Dr. Shah at the bedside, dressing was changed. repeat CBC in AM
[2020-04-04] MEDS: SILVER ANTIMICROBIAL WOUND GEL 45ML TOP SCH (08:34)
[2020-04-04] MEDS ORDERED: HYDRALAZINE HCL 25 MG TAB PO SCH (09:00)
[2020-04-04] MEDS: ACETAMINOPHEN 325 MG TAB PO PRN (09:29)
--- NOTE | 2020-04-04 11:06 | Progress Note ---
DATE: 04/04/2020 SUBJECTIVE: The patient is seen at bedside, doing better. Decreased discomfort to left lower extremity. Denying any history of fever, chills, nausea, or vomiting. OBJECTIVE: VITAL SIGNS: Afebrile, pulse rate 102, respiration 20, blood pressure 150/96, and O2 saturation 98% at room air. EXTREMITIES: Left lower extremity getting better. Decreased cellulitis. Decreased edema. Some granulation tissue noted. No purulent drainage noted with negative foul smell. Tendon exposed due to the extensive I and D that was performed several days ago. LABORATORY DATA: Noted. White blood cell count dropping to 10.43, hemoglobin 11.6, and platelet count of 602. Blood glucose of 170. ASSESSMENT: Grade 4 ulcer with cellulitis with diabetic neuropathy, responding to local wound care and IV antibiotics. PLAN: We will continue IV antibiotics. Dressing was changed, SilvaSorb followed by diluted wet-to-dry Betadine was applied. We will repeat CBC with difficile in the morning. If the patient doing okay, tomorrow may be able to go home and follow up in the office. KELLEY Joyce/ROGER /[id number]
[2020-04-04] MEDS: VANCOMYCIN 1GM/NS 250 ML 250 ML IV SCH (12:10)
[2020-04-04] MEDS: ENOXAPARIN SOD INJ 40 MG/0.4 ML SYR SC SCH (17:00)
[2020-04-04] MEDS: INSULIN GLARGINE 100 UNITS/ML VIAL SQ SCH (21:47)
[2020-04-05] VITALS: BP 153/90
--- NOTE | 2020-04-05 00:06 | Progress Note ---
DATE: 04/04/2020 Medicine Progress Note SUBJECTIVE: The patient is doing well today with no complaints. Spoke with Podiatry and ID, agreed to be discharged tomorrow on oral antibiotics. Spoke with Podiatry, no further surgical intervention needed, but does need close followup as an outpatient in his office. PHYSICAL EXAMINATION: VITAL SIGNS: Temperature is 98.3, pulse 88, respiratory rate is 19, blood pressure was 146/86, and pulse ox 100% on room air. GENERAL: Not in acute distress. Alert and oriented x3. Cooperative on examination. HEENT: Head; normocephalic, atraumatic. Eyes; pupils are equal, round, and reactive to light bilaterally. Extraocular movements intact bilaterally. Throat; no evidence of erythema or exudates in the posterior pharynx. Has poor dentition. NECK: Supple. Good range of motion. PULMONARY: Clear to auscultation bilaterally. No wheezing, no rales, no rhonchi, no crackles appreciated. CARDIOVASCULAR: Positive S1 and S2. No murmurs, rubs, or gallops appreciated. ABDOMEN: Soft, nondistended, and nontender to palpation. Bowel sounds present. MUSCULOSKELETAL: Strength is 5/5 throughout. No evidence of any muscle deficits on examination. No weakness appreciated. SKIN: Intact. Warm to touch. Good cap refill. PSYCHIATRIC: Normal affect and mood. EXTREMITIES: No edema. Good range of motion throughout. LABORATORY FINDINGS: Show white count 10, hemoglobin 11.6, hematocrit 35, platelets of 602. Chemistry; sodium 136, potassium 3.8, chloride 100, bicarb 30, anion gap of 9.8, BUN is 9, creatinine is 0.71. Point of care glucose 170, calcium 9.3. Coronavirus was not detected. Wound cultures were noted. Blood cultures, no growth to-date. IMPRESSION: 1. Left foot osteomyelitis. 2. 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 3. Peripheral arterial disease. 4. Type 2 diabetes. 5. Medically debilitated. 6. Anemia. 7. Electrolyte abnormalities. PLAN: At this time, I spoke with Podiatry and ID. They agree that the patient can be discharged tomorrow on oral antibiotics and will need close followup in the Podiatry Clinic for further intervention and management. We will educate the patient about local dressing changes. We will continue with IV antibiotics for now. His blood pressure medications have been adjusted accordingly. Continue with Lovenox for DVT prophylaxis. Once again, I will revisit with the consultants tomorrow, if the patient is cleared, we will discharge home tomorrow. MD JOSE Carrillo/MODAntonio /[id number]
[2020-04-05] MEDS: SODIUM CHLORIDE 0.9% 1000ML 1,000 ML IV SCH (00:15)
[2020-04-05] MEDS: VANCOMYCIN 1GM/NS 250 ML 250 ML IV SCH ×2 (00:15→12:22)
[2020-04-05 04:00] VITALS: BP 156/93
[2020-04-05 06:09] LABS: BASOPHILS % 0.3 % (0.0-1.0); EOSINOPHILS # (AUTO) 0.3 (0.0-0.4); EOSINOPHILS % 2.1 % (0.0-6.0); HEMATOCRIT 32.5 % (38.2-49.6); HEMOGLOBIN 10.5 g/dL (14.0-18.0); LYMPHOCYTES # (AUTO) 2.5 (1.0-3.2); LYMPHOCYTES % 21.1 % (18.0-39.1); MEAN CORPUSCULAR HEMOGLOBIN 27.2 pg (28-32); MEAN CORPUSCULAR HGB CONC 32.3 g/dL (31-35); MEAN CORPUSCULAR VOLUME 84.2 fL (81-99); MONOCYTES # (AUTO) 0.9 (0.2-0.8); MONOCYTES % 7.6 % (4.4-11.3); NEUTROPHILS % 68.2 % (38.7-80.0); PLATELET COUNT 639 x10e3/uL (140-360); RED BLOOD COUNT 3.86 x10e6/uL (4.3-5.7)
[2020-04-05] MEDS: CEFEPIME 1GM/NS 0.9% 50 ML 50 ML IV SCH (06:34)
--- NOTE | 2020-04-05 07:00 | NUR ---
received bedside report. pt is sleeping, no s/s of distress. call light within reach
[2020-04-05] MEDS: INSULIN REGULAR, HUMAN 100 UNIT/1 ML 3ML VIAL SQ SCH ×2 (07:30→12:26)
[2020-04-05 07:43] VITALS: BP 173/94
[2020-04-05 08:25] VITALS: BP 173/94
--- NOTE | 2020-04-05 08:30 | NUR ---
DR. LICONA AT THE BEDSIDE. CLEARED PATIENT TO GO HOME, INSTRUCTED RN TO PROVIDE SUPPLIES FOR WOUND CARE TO PATIENT WHEN DISCHARGED
[2020-04-05] MEDS: LISINOPRIL 20 MG TAB PO SCH (08:34)
[2020-04-05] MEDS: CARVEDILOL 3.125 MG TAB PO SCH (08:34)
[2020-04-05] MEDS: SILVER ANTIMICROBIAL WOUND GEL 45ML TOP SCH (08:34)
[2020-04-05] MEDS: SITAGLIPTIN 100 MG TAB PO SCH (08:34)
[2020-04-05 11:26] VITALS: BP 156/91
--- NOTE | 2020-04-05 13:30 | NUR ---
DR. DURHAM AT THE BEDSIDE. LEFT PRESCRIPTIONS FOR DISCHARGE
[2020-04-05] MEDS ORDERED: METFORMIN HCL500 MG PO (13:45)
[2020-04-05] MEDS ORDERED: TYLENOL WITH C1 EACH PO (13:46)
[2020-04-05] MEDS ORDERED: CARVEDILOL12.5 MG PO (13:46)
[2020-04-05] MEDS ORDERED: GLIPIZIDE ER5 MG PO (13:46)
[2020-04-05] MEDS ORDERED: JANUVIA100 MG PO (13:47)
[2020-04-05] MEDS ORDERED: LISINOPRIL10 MG PO (13:47)
--- NOTE | 2020-04-05 14:49 | NUR ---
Nutrition Screen Note RD Recommendation for Physician: -Continue current diet as ordered Plan of Care: RD following, monitoring for tolerance and adequacy Nutrition reason for involvement: Length of stay Primary Diagnose(s): cellulitis, deep space infection left foot, hypertension uncontrolled, hyperglycemia PMH: type 2 diabetes, HTN, uncontrolled peripheral neuropathy Ht: 66 in Wt:167 lb BMI: 27.0 kg/m2 IBW:[address] Assessment: (04/05/20) Chart reviewed. Labs and meds reviewed. Pt is a 49 year old male admitted with cellulitis, deep space infection of left foot, uncontrolled hypertension, and hyperglycemia. Pt reports a good appetite and mentioned he has been eating all of his meals. No weight loss reported and pt stated he usually weighs 160 lbs. No N/V/D/C or chewing/swallowing issues. Will continue to monitor. Current Diet: 1800 ADA/cardiac Malnutrition Evaluation (04/05/20) The patient does not meet criteria for a specified degree of malnutrition at this time. Will re-evaluate at follow-up as appropriate. Diet Education Needs Assessment: Family member at bedside requested diet information for the patient. Educational materials regarding following a heart healthy/reduced sodium diet, carbohydrate counting, and reading the food label were provided. They were not interested in verbal education at time of visit and will read provided materials. Encouraged family member and pt to contact RD if they have questions. Nutrition Care Level: low Signed: Monica Alonso, RD, LD
--- NOTE | 2020-04-05 15:05 | Consultation ---
DATE OF CONSULTATION: 04/05/2020 SUBJECTIVE: The patient is at bedside, doing better. Denies history of fever, chills, nausea, or vomiting. Minimal pain to the left lower extremity. OBJECTIVE: VITAL SIGNS: Afebrile. Vital signs are stable. EXTREMITIES: Ulceration to the left lower extremity improving slowly, some fibrotic tissue, some granulation tissue. Negative purulent drainage. Negative foul smell. Decreased cellulitis and decreased edema. LABORATORY DATA: White blood cell count 11.7. ASSESSMENT: Grade 4 ulcer with tendon exposed, resolving cellulitis with possible osteomyelitis of left lower extremity. PLAN: We will be able to go home on oral doxycycline, Cipro as recommended per Dr. Palma. The patient to follow up next week in the office. Instructed on leaving his dressing on for the next 3 days, which was changed on this date. SilvaSorb followed by diluted wet-to-dry Betadine was applied. The patient to walk strictly with the aid of a surgical shoe. KELLEY Joyce/ROGER /[id number]
--- NOTE | 2020-04-06 00:12 | Discharge Summary ---
FINAL DISCHARGE DIAGNOSES: 1. Grade 4 ulcer and tendon exposed on the left foot with resolving cellulitis with possible osteomyelitis of the left lower extremity. 2. Status post incision and drainage performed by Podiatry. 3. Uncontrolled type 2 diabetes. 4. 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 5. Hypertension. 6. Anemia of chronic disease. CONSULTANTS: Podiatry and ID. VITAL SIGNS: Temperature is 98.6, pulse 86, respiratory rate is 19, blood pressure 156/91, pulse ox 98% on room air. LABORATORY FINDINGS: Show white count is 10.4, hemoglobin 11.6, hematocrit is 35, and platelets of 602. Chemistry; sodium 136, potassium 3.8, chloride 100, bicarb 30, anion gap of 9.8, BUN is 9, creatinine is 0.71, glucose 170, A1c was found to be 12.4, calcium is 9.3, total bilirubin 0.2, AST 18, ALT 21, alkaline phosphatase 335, total protein 6.5, albumin is 2, triglycerides 189, cholesterol 168, LDL is 99. SEROLOGY: Coronavirus not detected. MICROBIOLOGY: Blood cultures no growth. Wound culture shows Proteus mirabilis, Staphylococcus aureus, Streptococcus bovis. IMAGING STUDIES: Foot x-ray shows no acute osseous abnormality. CT of the left foot shows subcutaneous emphysema surrounding the foot, particularly at the head of the proximal phalanx. MRI was performed. Chest x-ray, no acute thoracic abnormality. Repeat foot x-ray shows status post amputation of the left 4th toe at the metatarsophalangeal joint. Soft tissue swelling and air. Incident noted of vascular calcifications. MRI of the left foot shows abnormal bone marrow edema in the distal 4th metatarsal, the distal 3rd metatarsal, and proximal 3rd toe, worrisome for osteomyelitis. Ill-defined fluid collection in the plantar aspect of the 2nd and 3rd toe, likely due to developing phlegmon or early abscess. HOSPITAL COURSE: This is a 49-year-old male, who comes in from the freestanding emergency room with worsening left foot cellulitis, needing further evaluation and management. Podiatry and ID were consulted. The patient maintained on IV antibiotic therapy. Imaging studies; CT of the left foot with results above. An MRI of the left foot with results above. The patient underwent a 4th digit left foot amputation at bedside. He also underwent an incision and drainage and washout at bedside according to the records and according to Podiatry. The patient is maintained on broad-spectrum IV antibiotic therapy. Wound cultures were noted. Blood cultures were found to be negative. After further discussion with Podiatry and ID, it was felt that the patient can be discharged to home on oral antibiotics. The patient was discharged on oral doxycycline and Cipro for 6 total weeks with close followup with Podiatry early next week. He was educated about dressing changes as well and the was present. The patient was cleared for discharge by Podiatry and ID. As for his diabetes, I did rearrange his antiglycemic medications to oral to metformin, Januvia, and glipizide. I also rearranged his antihypertensive medications with much improved blood pressure readings. The patient was cleared for discharge by all consultants. The patient was stable prior to being discharged home. On the day of discharge, vital signs were stable, labs reviewed and stable. The patient is seen and evaluated and examined thoroughly on the day of discharge with no other complaints. The patient verbalized understanding and agrees to plan of care to follow up accordingly as an outpatient with primary care physician in 1 week. Podiatry early next week for further management and care of his left foot and ID in the next 1 week time. The patient verbalized understanding and agreed to plan of care. MEDICATIONS: See med reconciliation form. DISPOSITION: Home. CONDITION: Stable. DIET: Heart healthy. In the event of any worsening symptoms, the patient was advised to come back to the ED for further evaluation. Discharge summary took greater than 35 minutes. MD JOSE Carrillo/ROGER /[id number]
== END 2020-04-05 14:51 | disposition home or self-care (01) | DRG 617 ==
LOC: FSED 15:04 → ERHOLD 16:10 → MED/SURG3 17:48
PROVIDERS: ADMIT Internal Medicine; ATTEND Internal Medicine
PROC: 0Y6W0Z0 Detachment at Left 4th Toe, Complete, Open Approach (ICD-10-PCS; principal; 2020-03-30)
PROC: 0J9R0ZZ Drainage of Left Foot Subcutaneous Tissue and Fascia, Open Approach (ICD-10-PCS; 2020-03-30)
DX: E11.628 Type 2 diabetes mellitus with other skin complications (principal); L03.116 Cellulitis of left lower limb; E11.52 Type 2 diabetes mellitus with diabetic peripheral angiopathy with gangrene; I96 Gangrene, not elsewhere classified; L02.612 Cutaneous abscess of left foot; M86.172 Other acute osteomyelitis, left ankle and foot; L97.423 Non-pressure chronic ulcer of left heel and midfoot with necrosis of muscle; E11.65 Type 2 diabetes mellitus with hyperglycemia; I10 Essential (primary) hypertension; E11.42 Type 2 diabetes mellitus with diabetic polyneuropathy; Z11.59 Encounter for screening for other viral diseases; Z91.14 Patient's other noncompliance with medication regimen; E78.00 Pure hypercholesterolemia, unspecified; F17.210 Nicotine dependence, cigarettes, uncomplicated; Z83.3 Family history of diabetes mellitus; D64.9 Anemia, unspecified; R53.81 Other malaise; E11.69 Type 2 diabetes mellitus with other specified complication; B96.4 Proteus (mirabilis) (morganii) as the cause of diseases classified elsewhere; B95.61 Methicillin susceptible Staphylococcus aureus infection as the cause of diseases classified elsewhere; B95.4 Other streptococcus as the cause of diseases classified elsewhere; E11.621 Type 2 diabetes mellitus with foot ulcer; D63.8 Anemia in other chronic diseases classified elsewhere; Z79.84 Long term (current) use of oral hypoglycemic drugs
CPT/HCPCS: 36415; 71046; 80048; 80053; 80061; 80202; 81003; 82948; 83036; 85025; 87040; 87071; 87075; 87186; 87205; 87635; 88304; 88311; 90714; 93005; 96372; 96374; 99284; J0360; J0692; J0720; J1100; J1650; J1815; J1817; J1885; J2001; J2250; J2270; J2405; J2543; J3010; J3370; J7030; Q9967